=== PATIENT | male | born 1960 | race American Indian/Alaskan Native ===

== ENCOUNTER → 2018-09-09 | Day surgery (SDC) | payer BC, OTHER ==
[~2018-09-09] MED LIST: Dextrose 5%-0.45% NaCl 1,000 ML IV SCH; Midazolam 1 MG/ML 2 ML SDV IV ONE; Midazolam 1 MG/ML 2 ML SDV ONE; Sodium Chloride 0.9% 10 ML Syringe FLUSH PRN; fentaNYL 100 MCG/2 ML SDV IV ONE; fentaNYL 100 MCG/2 ML SDV ONE
--- NOTE | 2018-09-09 11:49 | OR ---
DATE: 09/09/2018 PROCEDURE PERFORMED: Total colonoscopy and cold snare polypectomy. INSTRUMENT USED: [id number] Olympus video colonoscope. PREMEDICATIONS: Fentanyl 100 mcg intravenous, Versed 4 mg intravenous. Nasal O2 cannula. The procedure was done under pulse oximetry, BP recording, and playground monitor. INDICATION: The patient with rectal bleeding and some fecal incontinence recently. Colonoscopic examination is done for detection of any polypoid lesions and removal, endoscopic hemostasis therapy if needed. DESCRIPTION OF PROCEDURE: Initial rectal exam was unremarkable. Rigid anoscopy showed small internal hemorrhoids without bleeding from them. The colonoscope was passed with ease up to the ileocecal area. The colon was found to be redundant and tortuous. Photographs were taken of the cecum showing 5-mm sized polyp, cold snare polypectomy was done, the tissue was retrieved and sent for histopathology. No bleeding was noted from any of the visualized areas at the commencement of the examination. The bowel preparation was thought to be adequate, Rogers scale 2. No stricture. No vascular ectasia. No large isolated ulcerations seen. No evidence of diffuse inflammatory bowel disease in the form of friability, contact bleeding, or ulcerations. Probing the proximal sides of folds and flexures, using adequate distention and clearing up the stool material, withdrawal of the scope was made, cecum to rectum, time over 6 minutes. No bleeding was noted from any of the visualized areas at the completion of the examination. IMPRESSION: Cecal polyp. The patient tolerated the procedure well. [facility] /[id number]
--- NOTE | 2018-09-09 12:43 | LETTER ---
09/09/2018 Johnie Yu MD [facility] [address] [place] [address] RE: JOSE RAUL HANDY GUILLE : [address] Yu: Mr. Jose Raul Handy had colonoscopic examination done this morning and he tolerated the procedure well. He is put on Citrucel 1 tablespoonful p.o. daily, response to be noted. Thank you. Sincerely, [facility] /[id number]
== END | disposition home or self-care (01) ==
LOC: DL.ENDO 06:01
PROVIDERS: ATTEND Internal Medicine Gastroenterology
DX: D12.0 Benign neoplasm of cecum (principal); E66.09 Other obesity due to excess calories; Z68.30 Body mass index [BMI] 30.0-30.9, adult; Z79.82 Long term (current) use of aspirin; F17.220 Nicotine dependence, chewing tobacco, uncomplicated; Z86.79 Personal history of other diseases of the circulatory system; Z88.0 Allergy status to penicillin; Z80.0 Family history of malignant neoplasm of digestive organs
CPT/HCPCS: 45385; J2250; J3010; J7042

== ENCOUNTER 2022-12-07 02:43 | Emergency (ER) | payer BC, OTHER ==
[2022-12-07] MEDS ORDERED: Sodium Chloride 0.9% 10 ML Syringe FLUSH PRN ×2 (03:11→03:35)
[2022-12-07 03:23] LABS: HEMOGLOBIN 15.8 g/dL (14.0-18.0); MEAN CORPUSCULAR HEMOGLOBIN 32.2 pg (27.0-34.0); MEAN CORPUSCULAR HGB CONC 34.3 g/dL (33.0-35.0); MEAN CORPUSCULAR VOLUME 93.7 fL (80-100); PLATELET COUNT,PLT 265 10^3/uL (150-450); RED BLOOD CELL COUNT 4.91 10^6/uL (4.6-6.2); WHITE BLOOD CELL COUNT,WBC 15.4 10^3/uL (5.0-10.0)
[2022-12-07 03:26] LABS: NEUTROPHILS PERCENT AUTO 57.5 % (42.2-75.2)
[2022-12-07 03:27] LABS: BASOPHILS PERCENT AUTO 0.3 % (0.0-1.0); EOSINOPHILS PERCENT AUTO 3.3 % (1.0-3.0); LYMPHOCYTES PERCENT AUTO 31.6 % (20.5-50.1); MONOCYTES PERCENT AUTO 7.3 % (2-8)
[2022-12-07] MEDS ORDERED: LORazepam 2 MG/ML SDV IVPUSH ONE ×2 (03:33→04:53)
[2022-12-07] MEDS ORDERED: Sodium Chloride 0.9% 1,000 ML IV ONE ×2 (03:35→05:30)
[2022-12-07 03:36] LABS: EOSINOPHILS PERCENT MAN 1 % (1-3); LYMPHOCYTES PERCENT MAN 30 % (20-50); MONOCYTES PERCENT MAN 7 % (2-8); SEG NEUTROPHILS PERCENT MAN 62 % (42-75)
[2022-12-07 03:39] LABS: A/G RATIO 0.74; ALANINE AMINOTRANSFERASE,ALT 91 U/L (16-63); ALBUMIN 3.1 g/dL (3.4-5.0); ALKALINE PHOSPHATASE 78 U/L (46-116); ANION GAP 18.4 mEq/L (7-13); ASPARTATE AMNIOTRANSFERASE,AST 105 U/L (15-37); BILIRUBIN TOTAL 0.8 mg/dL (0.2-1.0); BLOOD UREA NITROGEN,BUN 18 mg/dL (7-18); CALCIUM 8.5 mg/dL (8.5-10.1); CARBON DIOXIDE,CO2 22 mmol/L (21-32); CHLORIDE,CL 101 mmol/L (98-107); EST CRCL DRUG DOSING (CG) 60.89 mL/min; ESTIMATED GFR 53 mL/min (>=60); GLUCOSE RANDOM 239 mg/dL (70-99); LIPASE 150 U/L (73-393); POTASSIUM,K 3.4 mmol/L (3.5-5.1); PROTEIN TOTAL,TP 7.3 g/dL (6.4-8.2); SODIUM,NA 138 mmol/L (136-145)
[2022-12-07 03:40] LABS: ETHANOL BLOOD MEDICAL < 3 mg/dL (0)
[2022-12-07] MEDS ORDERED: Aspirin 81 MG Tab.Chew PO ONE (03:44)
[2022-12-07 03:48] LABS: B-TYPE NATRIURETIC PEPTIDE,BNP 386 pg/ml (0-100)
[2022-12-07] MEDS ORDERED: Iopamidol 755 Mg/ML 100 ML Bottle IVPUSH ONE (03:48)
[2022-12-07] MEDS ORDERED: levETIRAcetam in NaCl (iso-os) 1,000 MG in Premix Bag 1 BAG IV ONE ×2 (04:53)
[2022-12-07] MEDS ORDERED: Clopidogrel 75 MG Tab PO ONE (05:14)
[2022-12-07] MEDS ORDERED: Enoxaparin 100 MG/1 ML Syringe SUBCUT ONE (05:15)
[2022-12-07] MEDS ORDERED: Amiodarone In Dextrose,Iso-Osm 360 MG in Premix Bag 1 BAG IV SCH ×2 (05:15)
[2022-12-07] MEDS ORDERED: Norepinephrine Bit/D5W Premix 250 ML IV SCH (06:00)
[2022-12-07 06:45] LABS: C-REACTIVE PROTEIN < 0.2 mg/dL (0.0-0.9)
== END 2022-12-07 06:50 ==
LOC: DL.ED 02:43
DX: I46.9 Cardiac arrest, cause unspecified (principal); I21.4 Non-ST elevation (NSTEMI) myocardial infarction; I49.01 Ventricular fibrillation; R56.9 Unspecified convulsions; E87.20 Acidosis, unspecified; I48.91 Unspecified atrial fibrillation; E78.00 Pure hypercholesterolemia, unspecified; I10 Essential (primary) hypertension; Z88.0 Allergy status to penicillin; Z79.899 Other long term (current) drug therapy; Z79.82 Long term (current) use of aspirin; Z20.822 Contact with and (suspected) exposure to COVID-19
CPT/HCPCS: 36415; 70450; 71045; 71275; 80053; 80307; 83605; 83690; 83880; 84145; 84484; 85025; 85379; 86140; 87040; 87804; 93010; 96361; 96372; 96374; 96375; 96376; 99291; 99291-25; 99292; A9270-GY; J0282; J1650; J1953; J2060; J3490; J7030; Q9967; U0002

== ENCOUNTER 2022-12-26 21:09 | Emergency (ER) | payer BC, OTHER ==
[2022-12-26] MEDS ORDERED: Sodium Chloride 0.9% 1,000 ML ONE (22:44)
[2022-12-26] MEDS ORDERED: Ondansetron 4 MG/2 ML SDV ONE (22:44)
[2022-12-26] MEDS ORDERED: Ondansetron 4 MG/2 ML SDV IV ONE (22:44)
[2022-12-26 22:58] LABS: BASOPHILS PERCENT AUTO 0.1 % (0.0-1.0); HEMATOCRIT 49.2 % (40.0-54.0); HEMOGLOBIN 16.7 g/dL (14.0-18.0); LYMPHOCYTES PERCENT AUTO 1.7 % (20.5-50.1); MEAN CORPUSCULAR HEMOGLOBIN 30.9 pg (27.0-34.0); MEAN CORPUSCULAR HGB CONC 33.9 g/dL (33.0-35.0); MEAN CORPUSCULAR VOLUME 90.9 fL (80-100); MONOCYTES PERCENT AUTO 3.8 % (2-8); NEUTROPHILS PERCENT AUTO 93.4 % (42.2-75.2); PLATELET COUNT,PLT 289 10^3/uL (150-450); RED BLOOD CELL COUNT 5.41 10^6/uL (4.6-6.2); WHITE BLOOD CELL COUNT,WBC 17.7 10^3/uL (5.0-10.0)
[2022-12-26 23:10] LABS: A/G RATIO 0.8; ALANINE AMINOTRANSFERASE,ALT 39 U/L (16-63); ALBUMIN 4.2 g/dL (3.4-5.0); ALKALINE PHOSPHATASE 94 U/L (46-116); ANION GAP 20.3 mEq/L (7-13); ASPARTATE AMNIOTRANSFERASE,AST 38 U/L (15-37); BILIRUBIN TOTAL 1.1 mg/dL (0.2-1.0); BLOOD UREA NITROGEN,BUN 22 mg/dL (7-18); BUN/CREATININE RATIO 13.7 (No establ ref range); CALCIUM 9.4 mg/dL (8.5-10.1); CARBON DIOXIDE,CO2 20 mmol/L (21-32); CHLORIDE,CL 104 mmol/L (98-107); CREATININE 1.61 mg/dL (0.70-1.30); GLUCOSE RANDOM 176 mg/dL (70-99); POTASSIUM,K 4.3 mmol/L (3.5-5.1); PROTEIN TOTAL,TP 9.4 g/dL (6.4-8.2); SODIUM,NA 140 mmol/L (136-145)
[2022-12-26 23:12] LABS: C-REACTIVE PROTEIN < 0.2 mg/dL (0.0-0.9); ESTIMATED GFR 49 mL/min (>=60)
[2022-12-26] MEDS ORDERED: Take Home: Ondansetron 4 MG Tab.DIS, 5 Tab Pack PO ONE (23:22)
== END 2022-12-26 23:57 | disposition home or self-care (01) ==
LOC: DL.ED 21:09
DX: K52.9 Noninfective gastroenteritis and colitis, unspecified (principal); I48.91 Unspecified atrial fibrillation; E78.00 Pure hypercholesterolemia, unspecified; I10 Essential (primary) hypertension; Z88.0 Allergy status to penicillin; Z79.82 Long term (current) use of aspirin; Z79.899 Other long term (current) drug therapy
CPT/HCPCS: 36415; 80053; 85025; 86140; 99284; J2405; J7030